=== PATIENT | male | born 1990 | race Caucasian/White ===

== ENCOUNTER 2020-04-04 18:23 | Emergency (ER) | payer OTHER, SELFPAY ==
[2020-04-04 18:33] VITALS: BP 157/90; PULSE 88; RESP 16; TEMP 36.6; O2SAT 98
--- NOTE | 2020-04-04 18:38 | PC.NURSE ---
sitting 157/90-88 standing 140/88-82
--- NOTE | 2020-04-04 18:44 | ED.GENADULT ---
HPI - General Adult General Chief complaint: Unspecified Stated complaint: dizziness Time Seen by Provider: 04/04/20 18:50 Source: patient Mode of arrival: ambulatory Limitations: no limitations History of Present Illness HPI narrative: Patient states he was out drinking last pm and has been presyncopal all day since then. He comes in because of this presyncopal sensation that he finds uncomfortable. Severity: mild Relieving factors: none and other Exacerbating factors: none Associated symptoms: denies other symptoms, shortness of breath and other (sore throat) Treatments prior to arrival: none Related Data Home Medications Medication Instructions Recorded Confirmed No Home Medications 04/04/20 04/04/20 Allergies Allergy/AdvReac Type Severity Reaction Status Date / Time acetaminophen [From Tylenol] AdvReac Mild Unknown Verified 04/04/20 18:32 Review of Systems Constitutional: Constitutional: Reports no additional constitutional complaints Eyes: Eyes: Reports no additional eye complaints ENT: Reports system reviewed and no additional complaints, except as documented Cardiovascular: Cardiovascular: Reports no additional cardiovascular complaints Respiratory: Respiratory: Reports no additional respiratory complaints Gastrointestinal: Gastrointestinal: Reports no additional gastrointestinal complaints Genitourinary: Genitourinary: Reports no additional male genitourinary complaints Musculoskeletal: Musculoskeletal: Reports no additional musculoskeletal complaints Integumentary/Breasts: Skin/Breast: Reports system reviewed and no additional complaints, except as docu Neurologic: Reports system reviewed and no additional complaints, except as documented Psychiatric: Psychiatric: Reports no additional psychiatric complaints Endocrine: Endocrine: Reports no additional endocrine complaints Hematologic/Lymphatic: Hematologic/Lymphatic: Reports no additional hematologic/lymphatic complaints Allergic/Immunologic: Allergic/Immunologic: Reports no additional allergic/immunologic complaints [facility] Past Medical History Medical History No significant past medical history Surgical History Surgical History No significant past surgical history Family History Family History (Updated 04/05/20 @ 02:05 by Jose Alejanrdo Jean MD) Father No significant family history Social History Social History Smoking status: Never smoker Alcohol intake: current Alcohol use details: excess alcohol at times when he drinks Gender identity (if verbalized by the patient): Male Exam Narrative: Exam Narrative: This young man present feeling somewhat presyncopal after drinking in excess last pm. Const: General: no acute distress Orientation/consciousness: patient oriented x3 HENMT: Head: normal to inspection Ears: external ears normal General nose exam: Normal external nose present Mouth: Yes moist mucous membranes Throat: posterior oropharynx normal Eyes: Conjunctivae: conjunctivae normal Pupils: Equal, round and reactive pupils present Neck: Neck: normal visual inspection Chest: Chest palpation & inspection: normal inspection of the chest Resp: Effort & Inspection: normal respiratory effort Auscultation: clear to auscultation bilaterally Cardio: Rate: regular rate Rhythm: regular rhythm GI: GI Palp: Yes Soft to palpation Rectal Exam: No heme positive stool Back/Spine/Pelvis: Back: no CVA tenderness Skin: General skin exam: normal color Neuro: General: patient oriented x3 and moves all extremities Extrem: General: normal to inspection Psych: Appearance: grossly normal Mental Status: mental status grossly normal Thought content: Yes Normal thought content present Course Course Emergency Course: Labs were drawn and reviewed with him. Vital Signs
[2020-04-04 19:02] LABS: Basophils Absolute Auto 0.03 K/mm3 (0.00-0.10); Basophils Percent Auto 0.3 % (0.0-1.0); Hematocrit 46.1 % (40.0-54.0); Hemoglobin 16.1 g/dL (14.0-18.0); Immature Granulocyte Absolute 0.02 K/mm3 (0.00-0.00); Immature Granulocyte Percent A 0.2 % (0.0-0.0); Lymphocytes Absolute Auto 2.34 K/mm3 (1.10-4.50); Mean Corpuscular HGB Conc 34.9 g/dL (32.0-36.0); Mean Corpuscular Hemoglobin 29.9 pg (27.0-31.0); Mean Corpuscular Volume 85.5 fL (78.0-102.0); Mean Platelet Volume 9.4 fl (8.7-11.0); Monocytes Absolute Auto 0.85 K/mm3 (0.10-0.90); Monocytes Percent Auto 8.7 % (2.0-11.0); Neutrophils Absolute Auto 6.5 K/mm3 (1.7-7.2); Neutrophils Percent Auto 66.8 % (50.0-70.0); Platelet Count Result 291 K/mm3 (150-420); Red Blood Count 5.39 M/mm3 (4.70-6.10); Red Cell Distribution Width 11.9 % (11.6-14.4); White Blood Count 9.7 K/mm3 (4.8-10.8)
[2020-04-04 19:17] LABS: Alanine Aminotransferase 93 U/L (16-63); Albumin Level 5.1 g/dL (3.4-5.0); Alkaline Phosphatase 97 U/L (46-116); Anion Gap 14 mmol/L (8-16); Aspartate Amino Transferase 38 U/L (15-37); Bilirubin,Total 0.7 mg/dL (0.00-1.00); Blood Urea Nitrogen 8 mg/dL (7-18); Calcium 8.9 mg/dL (8.5-10.1); Carbon Dioxide 26 mmol/L (21-32); Chloride 99 mmol/L (98-108); Estimated CRCL calculation 127 ml/min; Estimated Glomerular Filt Rate > 60; Glucose 105 mg/dL (70-99); Osmolality Calculated 286 mOsm/kg (285-295); Potassium 3.8 mmol/L (3.5-5.1); Sodium 139 mmol/L (136-145); Total Protein 9.2 g/dL (6.4-8.2)
[2020-04-04 19:45] VITALS: BP 142/78; PULSE 87; RESP 18; TEMP 36.6; O2SAT 97
== END 2020-04-04 19:46 | disposition home or self-care (01) ==
PROVIDERS: Emergency Provider Emergency Medicine; PCP Family Medicine
DX: B34.9 Viral infection, unspecified (principal); T50.905A Adverse effect of unspecified drugs, medicaments and biological substances, initial encounter
CPT/HCPCS: 80053; 83735; 85025; 87081; 87880; 99282; 99283

== ENCOUNTER 2020-06-09 21:33 | Emergency (ER) | payer OTHER, SELFPAY ==
--- NOTE | ~2020-06-09 | XR_ITS ---
XR chest 2V DATE: 06/09/2020 22:48 INDICATION: Palpitations for one week TECHNIQUE: PA and lateral chest COMPARISON: None FINDINGS: Normal heart size. No hilar or mediastinal enlargement. No pulmonary infiltrate or consolid ation, pleural effusion or pulmonary vascular congestion or pneumothorax. IMPRESSION: No active cardiopulmonary disease Reviewed, dictated and finalized at location A.
--- NOTE | 2020-06-09 21:48 | ECG_ITS ---
Measurements Intervals [place] Rate: 91 P: 60 CO: 139 QRS: 70 QRSD: 106 T: 9 QT: 355 QTc: 438 Interpretive Statements SINUS RHYTHM INCOMPLETE RIGHT BUNDLE BRANCH BLOCK DELAYED PRECORDIAL R/S TRANSITION BORDERLINE ST-T WAVE ABNORMALITY- INFERIOR LEADS BASELINE ARTIFACT- I, II, III, AVR, AVF, V3 BORDERLINE ECG Electronically Signed On 06-10-2020 8:08:56 CDT by Dennis Villagomez D.O.
[2020-06-09 21:56] VITALS: BP 155/94; PULSE 97; RESP 18; TEMP 37.7; O2SAT 99
[2020-06-09 22:21] VITALS: BP 150/89; PULSE 88; RESP 22
--- NOTE | 2020-06-09 22:37 | ED.GENADULT ---
HPI - General Adult General Chief complaint: Unspecified Stated complaint: heart flutter, SOB, dizzy Time Seen by Provider: 06/09/20 22:05 Source: patient Mode of arrival: ambulatory Limitations: no limitations History of Present Illness HPI narrative: Patient comes in with complaints of palpitations. He has had palpations off and on for several days, lasting minutes at time. These seem to happen mostly at rest. He has had presyncope that has been associated with this. The palpitations seem to more noticeable lately, especially today. Onset (ago): day(s) Severity: moderate Pain Consistency: intermittent Relieving factors: movement Exacerbating factors: rest Associated symptoms: denies other symptoms Related Data Home Medications Medication Instructions Recorded Confirmed No Home Medications 04/04/20 06/09/20 Allergies Allergy/AdvReac Type Severity Reaction Status Date / Time acetaminophen [From Tylenol] AdvReac Mild Unknown Verified 04/04/20 18:32 Review of Systems Constitutional: Constitutional: Reports no additional constitutional complaints Eyes: Eyes: Reports no additional eye complaints ENT: Reports system reviewed and no additional complaints, except as documented Cardiovascular: Cardiovascular: Reports no additional cardiovascular complaints Respiratory: Respiratory: Reports no additional respiratory complaints Gastrointestinal: Gastrointestinal: Reports no additional gastrointestinal complaints Genitourinary: Genitourinary: Reports no additional male genitourinary complaints Musculoskeletal: Musculoskeletal: Reports no additional musculoskeletal complaints Integumentary/Breasts: Skin/Breast: Reports system reviewed and no additional complaints, except as docu Neurologic: Reports system reviewed and no additional complaints, except as documented Psychiatric: Psychiatric: Reports no additional psychiatric complaints Endocrine: Endocrine: Reports no additional endocrine complaints Hematologic/Lymphatic: Hematologic/Lymphatic: Reports no additional hematologic/lymphatic complaints Allergic/Immunologic: Allergic/Immunologic: Reports no additional allergic/immunologic complaints [facility] Past Medical History Medical History No significant past medical history Surgical History Surgical History No significant past surgical history Family History Family History (Updated 04/05/20 @ 02:05 by Jose Alejandro Jean MD) Father No significant family history Social History Social History Smoking status: Never smoker Alcohol intake: current Gender identity (if verbalized by the patient): Male Exam Const: General: cooperative and healthy appearing Nutritional Appearance: average body habitus Orientation/consciousness: oriented to person, oriented to place and oriented to time Limitations: no limitations HENMT: Head: normal to inspection and normocephalic Ears: external ears normal and TM's normal bilaterally General nose exam: Normal external nose present and Normal nares present Face and sinus: normal facial exam Mouth: Yes Normal oral and palatal mucosa present and Yes oropharynx normal Teeth and gingiva: dentition normal Throat: posterior oropharynx normal Eyes: General: appearance normal, both eyes and all related structures Conjunctivae: conjunctivae normal Sclera: sclerae normal Neck: Neck: normal visual inspection Chest: Chest palpation & inspection: normal inspection of the chest Resp: Effort & Inspection: normal respiratory effort and able to speak in complete sentences Auscultation: clear to auscultation bilaterally Cardio: Rate: regular rate Rhythm: regular rhythm GI: Inspection: normal to inspection and other (Soft, non tender) Skin: General skin exam: normal color Lesions: no lesions Rashes: no rashes Trauma: n
[2020-06-09 23:02] VITALS: BP 132/80; PULSE 80; RESP 18; TEMP 37.2; O2SAT 98
[2020-06-09 23:13] LABS: Basophils Absolute Auto 0.04 K/mm3 (0.00-0.10); Basophils Percent Auto 0.9 % (0.0-1.0); Eosinophils Absolute Auto 0.12 K/mm3 (0.02-0.50); Eosinophils Percent Auto 2.6 % (1.0-6.0); Hematocrit 43.6 % (40.0-54.0); Hemoglobin 15.1 g/dL (14.0-18.0); Immature Granulocyte Absolute 0.01 K/mm3 (0.00-0.00); Immature Granulocyte Percent A 0.2 % (0.0-0.0); Lymphocytes Percent Auto 34.2 % (18.0-42.0); Mean Corpuscular HGB Conc 34.6 g/dL (32.0-36.0); Mean Corpuscular Hemoglobin 29.8 pg (27.0-31.0); Mean Platelet Volume 9.8 fl (8.7-11.0); Monocytes Absolute Auto 0.44 K/mm3 (0.10-0.90); Monocytes Percent Auto 9.4 % (2.0-11.0); Neutrophils Absolute Auto 2.5 K/mm3 (1.7-7.2); Neutrophils Percent Auto 52.7 % (50.0-70.0); Platelet Count Result 222 K/mm3 (150-420); Red Blood Count 5.07 M/mm3 (4.70-6.10); Red Cell Distribution Width 11.7 % (11.6-14.4); White Blood Count 4.7 K/mm3 (4.8-10.8)
[2020-06-09 23:21] LABS: Add Urine Microscopic? NO; Appearance Urine Clear (Clear); Bilirubin Urine Negative (Negative); Blood Urine Negative (Negative); Color Urine Yellow (Yellow); Glucose Urine UA Negative (Negative); Ketones Urine Negative (Negative); Leukocyte Esterase Ur Negative (Negative); Nitrate Urine Negative (Negative); Protein Urine Negative (Negative); Specific Grav Ur 1.025 (1.010-1.020); Urobilinogen Urine 0.2 mg/dL (0.2-1.0); pH Urine 6.5 (5.0-8.0)
[2020-06-09 23:28] LABS: D Dimer 0.21 mg/L (0.19-0.50); Prothrombin Time 10.7 Seconds (9.50-12.10)
[2020-06-09 23:28] LABS: Amphetamine Screen Urine Negative (Negative); Barbiturate Screen Urine Negative (Negative); Benzodiazepines Screen Urine Negative (Negative); Cannabinoid Screen Urine Negative (Negative); Cocaine Screen Urine Negative (Negative); Methadone Screen Urine Negative (Negative); Opiate Screen Urine Negative (Negative); Phencyclidine Screen Urine Negative (Negative)
[2020-06-09 23:30] LABS: Alanine Aminotransferase 39 U/L (16-63); Albumin Level 4.1 g/dL (3.4-5.0); Alkaline Phosphatase 87 U/L (46-116); Anion Gap 9 mmol/L (8-16); Aspartate Amino Transferase 22 U/L (15-37); Bilirubin,Total 0.3 mg/dL (0.00-1.00); Blood Urea Nitrogen 22 mg/dL (7-18); Calcium 8.9 mg/dL (8.5-10.1); Carbon Dioxide 27 mmol/L (21-32); Chloride 101 mmol/L (98-108); Estimated CRCL calculation 113 ml/min; Estimated Glomerular Filt Rate > 60; Glucose 118 mg/dL (70-99); Magnesium 1.9 mg/dL (1.8-2.4); Osmolality Calculated 288 mOsm/kg (285-295); Potassium 3.8 mmol/L (3.5-5.1); Sodium 137 mmol/L (136-145); Total Protein 7.8 g/dL (6.4-8.2); Troponin I 10.1 ng/L (0.00-60.4)
[2020-06-09 23:37] LABS: BNP 17.5 pg/mL (0-100)
[2020-06-09 23:50] LABS: Partial Thromboplastin Time 26.6 SEC (23.90-30.70)
[2020-06-09 23:50] LABS: Thyroid Stimulating Hormone 2.66 uIU/mL (0.36-3.74)
[2020-06-10 00:03] VITALS: BP 130/75; PULSE 76; RESP 20; TEMP 36.8; O2SAT 98
== END 2020-06-10 00:08 | disposition home or self-care (01) ==
PROVIDERS: Emergency Provider Emergency Medicine; PCP Physician Assistant
DX: R00.2 Palpitations (principal)
CPT/HCPCS: 36415; 71046; 80053; 80307; 81003; 83735; 83880; 84443; 84484; 85025; 85380; 85610; 85730; 93005; 99283; 99284

== ENCOUNTER 2020-06-17 14:58 | Outpatient (CLI) | payer OTHER, SELFPAY ==
--- NOTE | 2020-06-20 12:08 | WPDHOLTEREM ---
Holter/Event Monitor Holter/Event Monitor Date of procedure: 06/17/20 Procedure Type: 48 hour holter monitor Indications: Palpitations Conclusion: 1. 48 hour holter monitor on 06/17/20. 2. Underlying rhythm is sinus rhythm. HR range 46-160 bpm; average HR 87 bpm. 3. No premature supraventricular complexes. No supraventricular tachycardia. 4. There are 495 premature ventricular complexes and 1 ventricular couplet. No ventricular tachycardia. 5. No sinoatrial or atrioventricular blocks. No significant pauses greater than 2 seconds. 6. No symptoms available for correlation.
== END 2020-06-17 14:59 | disposition home or self-care (01) ==
LOC: CHSCARD 14:59
PROVIDERS: PCP Physician Assistant; Visit Provider Physician Assistant
DX: R00.2 Palpitations (principal)
CPT/HCPCS: 93225; 93226

== ENCOUNTER 2022-01-03 15:54 | Emergency (ER) | payer BC, SELFPAY ==
--- NOTE | ~2022-01-03 | XR_ITS ---
EXAMINATION: XR chest 2V Exam Date/Time: 01/03/2022 16:16 [employer] HISTORY: Cough for 1 week Comparison: 06/10/2019. RESULT: Lines, tubes, and devices: None. Lungs and pleura: Clear. Cardiomediastinal silhouette: Stable. Other: No acute osseous or upper abdominal finding. IMPRESSION: No acute cardiopulmonary process. Reviewed, dictated and finalized at location K. TR[employer]PERATOR
[2022-01-03 15:57] VITALS: BP 138/87; PULSE 95; RESP 18; TEMP 36.6; O2SAT 98
[2022-01-03 16:00] VITALS: BP 138/87; PULSE 95; RESP 18; TEMP 36.6; O2SAT 98
--- NOTE | 2022-01-03 16:04 | ED.URI ---
HPI - URI/Sore Throat General Chief Complaint: Upper Respiratory Infection Stated Complaint: cough, fatigue Time Seen by Provider: 01/03/22 16:04 Source: patient and RN notes reviewed Mode of arrival: ambulatory Limitations: no limitations History of Present Illness HPI Narrative: Patient states he has had a cough for approximately 1 week. He says sometimes he coughs up some phlegm that is clear. Sometimes he coughs up some blood after bout of harsh coughing. The coughing is keeping him up at night. He also when out and had some drinks with his friends last night and today he seems very fatigued and tired. MD elicited complaint: fever and cough Onset (ago): week(s) (1) Consistency: constant Severity: moderate Description of mucous: clear and bloody (sometimes after coughing) Able to tolerate fluids by mouth: Yes Exacerbating factors: nothing Relieving factors: nothing Associated symptoms: other ( Fatigue) Treatments prior to arrival: none Related Data Home Medications Medication Instructions Recorded Confirmed No Home Medications 04/04/20 01/03/22 Allergies Allergy/AdvReac Type Severity Reaction Status Date / Time acetaminophen [From Tylenol] AdvReac Mild Unknown Verified 01/03/22 16:09 Review of Systems Review of Systems: All systems reviewed & are unremarkable except as noted in HPI and below Constitutional: Constitutional: Reports chills and Denies excessive sweating PMFSH Past Medical History Medical History No significant past medical history Surgical History Surgical History No significant past surgical history Family History Family History (Updated 04/05/20 @ 02:05 by Jose Alejandro Jean MD) Father No significant family history Social History Social History Smoking status: Never smoker Alcohol intake: current Alcohol use details: excess alcohol at times when he drinks Gender identity (if verbalized by the patient): Male Exam Const: General: cooperative, healthy appearing, no acute distress, well developed and alert Nutritional Appearance: well nourished Orientation/consciousness: patient oriented x3 Limitations: no limitations HENMT: Head: normal to inspection Ears: hearing grossly normal bilaterally, external ears normal and TM's normal bilaterally Face/Nose/Sinus: Normal external nose present, Normal nares present and normal facial exam Throat: posterior oropharynx normal Eyes: General: appearance normal, both eyes and all related structures Pupils: Equal, round and reactive pupils present EOM: EOMs intact bilaterally Neck: Neck: normal visual inspection, full ROM, trachea midline and supple Resp: Effort & Inspection: normal respiratory effort Auscultation: clear to auscultation bilaterally Cardio: Rate: regular rate Rhythm: regular rhythm GI: Inspection: normal to inspection GI Palp: Yes Soft to palpation and No Tenderness to palpation present (GI) Auscultation: normal bowel sounds Back/Spine/Pelvis: Cervical Spine: cervical ROM normal Thoracic/Lumbar Spine: thoraco-lumbar ROM normal Skin: General skin exam: normal color and turgor normal Rashes: no rashes Neuro: General: patient oriented x3 and gait normal Cranial nerves: Yes CN's II-XII intact bilaterally Speech: normal speech Extrem: General: normal to inspection, full ROM and no clubbing, cyanosis or edema Psych: Appearance: grossly normal and well kempt Mental Status: mental status grossly normal Speech and movement: Normal speech and movement present Affect: normal affect Attitude: cooperative Course Vital Signs Vital signs: Vital Signs Temperature 36.6 C 01/03/22 15:57 Pulse Rate 95 01/03/22 15:57 Respiratory Rate 18 01/03/22 15:57 Blood Pressure 138/87 01/03/22 15:57 Pulse Oximetry 98 01/03/22 15:57 Oxygen Delivery Room Air 1
[2022-01-03 16:54] LABS: Influenza A QL RT-PCR Negative (Negative); Influenza B QL RT-PCR Negative (Negative); SARS-CoV-2 RNA PCR Negative (Negative)
[2022-01-03 16:59] VITALS: BP 156/85; PULSE 77; RESP 18; O2SAT 97
== END 2022-01-03 17:04 | disposition home or self-care (01) ==
PROVIDERS: Emergency Provider Emergency Medicine; PCP Physician Assistant
DX: J00 Acute nasopharyngitis [common cold] (principal); Z20.822 Contact with and (suspected) exposure to COVID-19
CPT/HCPCS: 71046; 87502; 99283; U0003; U0005

== ENCOUNTER 2022-10-25 20:19 | Emergency (ER) | payer BC, SELFPAY ==
[2022-10-25 20:19] VITALS: BP 147/88; PULSE 75; RESP 20; TEMP 36.6; O2SAT 97
--- NOTE | 2022-10-25 20:21 | ED.GENADULT ---
HPI - General Adult General Chief complaint: Unspecified Stated complaint: Sore Throat Time Seen by Provider: 10/25/22 20:20 Source: patient Mode of arrival: ambulatory Limitations: no limitations History of Present Illness HPI narrative: 32 year old male presents to the Emergency Department complaining of sore throat. Onset a week ago. Now feels like uvula is swelling and blocking throat. No no known exposure. No fever, vomiting, diarrhea. Onset (ago): week(s) (1) Relieving factors: none Exacerbating factors: none Associated symptoms: denies other symptoms Treatments prior to arrival: none Related Data Allergies Allergy/AdvReac Type Severity Reaction Status Date / Time acetaminophen [From Tylenol] AdvReac Mild Unknown Verified 01/03/22 16:09 Review of Systems Review of Systems: All systems reviewed & are unremarkable except as noted in HPI and below Constitutional: Constitutional: Reports as per HPI and Reports no additional constitutional complaints Eyes: Eyes: Reports as per HPI and Reports no additional eye complaints ENT: Reports system reviewed and no additional complaints, except as documented, Denies headache(s), Denies nasal discharge, Reports sore throat and Reports throat swelling Cardiovascular: Cardiovascular: Reports as per HPI and Reports no additional cardiovascular complaints Respiratory: Respiratory: Reports as per HPI, Reports no additional respiratory complaints, Denies chest congestion, Denies cough and Denies dyspnea Gastrointestinal: Gastrointestinal: Reports as per HPI, Reports no additional gastrointestinal complaints, Denies diarrhea, Denies nausea and Denies vomiting Genitourinary: Genitourinary: Reports no additional male genitourinary complaints Musculoskeletal: Musculoskeletal: Reports no additional musculoskeletal complaints Integumentary/Breasts: Skin/Breast: Reports system reviewed and no additional complaints, except as docu Neurologic: Reports system reviewed and no additional complaints, except as documented Psychiatric: Psychiatric: Reports no additional psychiatric complaints Endocrine: Endocrine: Reports no additional endocrine complaints Hematologic/Lymphatic: Hematologic/Lymphatic: Reports no additional hematologic/lymphatic complaints Allergic/Immunologic: Allergic/Immunologic: Reports no additional allergic/immunologic complaints PMFSH Past Medical History Medical History No significant past medical history Surgical History Surgical History No significant past surgical history Family History Family History Father No significant family history Social History Social History Smoking status: Never smoker Alcohol intake: current Alcohol use details: excess alcohol at times when he drinks Gender identity (if verbalized by the patient): Male Exam Const: General: cooperative, healthy appearing, comfortable, no acute distress, well developed and alert Nutritional Appearance: average body habitus Orientation/consciousness: oriented to person Limitations: no limitations HENMT: Head: normal to inspection Ears: external ears normal Face/Nose/Sinus: Normal external nose present Face and sinus: normal facial exam Mouth: Yes Normal oral and palatal mucosa present, Yes moist mucous membranes, No drooling and No muffled voice Throat: uvula midline, no peritonsillar masses, posterior oropharynx abnormal (slightly erythematous) and uvular edema (slight) Eyes: General: appearance normal, both eyes and all related structures Pupils: Equal, round and reactive pupils present EOM: EOMs intact bilaterally Neck: Neck: normal visual inspection, no lymphadenopathy, no meningeal signs, trachea midline and supple Chest: Chest palpation & inspection: normal
[2022-10-25 21:02] VITALS: BP 124/88; PULSE 72; RESP 20; O2SAT 98
[2022-10-25 21:28] LABS: Strep Group A RT-PCR DETECTED (Negative)
[2022-10-25 22:03] VITALS: BP 127/80; PULSE 70; RESP 16; TEMP 36.6; O2SAT 99
== END 2022-10-25 22:05 | disposition home or self-care (01) ==
PROVIDERS: Emergency Provider Emergency Medicine; PCP Physician Assistant
DX: J02.0 Streptococcal pharyngitis (principal)
CPT/HCPCS: 87651; 96372; 99283; J0696